=== PATIENT | female | born 1985 | race American Indian/Alaskan Native ===

== ENCOUNTER 2016-06-02 08:45 | Outpatient (CLI) | payer OTHER ==
--- NOTE | 2016-06-02 10:30 | Mammography Report ---
BILATERAL DIGITAL DIAGNOSTIC MAMMOGRAM with CAD and RIGHT BREAST ULTRASOUND: 06/02/16 CLINICAL: Right breast pain. COMPARISON:None. These are Baseline studies. FINDINGS: The breasts are predominantly fatty with a few bilateral scattered fibroglandular densities. Bilateral scattered benign calcifications.No mass, architectural distortion or suspicious calcifications. Ultrasound of the right breast (including all four quadrants and the retroareolar area) demonstrated normal fibroglandular and fatty structures. No mass, cyst or shadowing. IMPRESSION: No mammographic evidence of malignancy.Negative right breast ultrasound. No explanation for right breast pain. BI-RADS CATEGORY: 2 -- Benign RECOMMENDATION: Clinical followup and routine mammographic screening based on ACS guidelines. COMMENT: Patient follow-up letters are generated by our [email or web address] application.
== END 2016-06-02 08:46 | disposition home or self-care (01) ==
LOC: SPVWC 08:45
PROVIDERS: ATTEND General Practice
DX: N64.4 Mastodynia (principal); R92.1 Mammographic calcification found on diagnostic imaging of breast
CPT/HCPCS: 76641; G0204; 77066